=== PATIENT | male | born 1970 | race Caucasian/White ===

== ENCOUNTER 2017-09-08 09:46 | Outpatient (CLI) | payer BC ==
[2017-09-08 10:31] LABS: eGFR (African) > 60; eGFR (Non-African) > 60
== END 2017-09-08 09:48 ==
LOC: LAB 09:46
PROVIDERS: ATTEND Physician Assistant
DX: E78.00 Pure hypercholesterolemia, unspecified (principal); Z12.5 Encounter for screening for malignant neoplasm of prostate; R73.9 Hyperglycemia, unspecified
CPT/HCPCS: 36415; 80053; 80061; 83036; G0103